=== PATIENT | male | born 1960 | race Caucasian/White ===

== ENCOUNTER 2017-11-05 19:42 | Emergency (ER) | payer OTHER ==
[~2017-11-05] VITALS: Ht 175.3 cm; Wt 70.0 kg
[2017-11-05] MEDS ORDERED: SODIUM CHLORIDE 0.9% 1,000 ML IV ONE (20:41)
[2017-11-05] MEDS ORDERED: FAMOTIDINE 20MG/2ML VIAL IV STA (20:41)
[2017-11-05] MEDS ORDERED: MAGNESIUM/ALUMINUM HYDROXIDE/SIMETHICONE 30ML UDC PO STA (20:41)
[2017-11-05] MEDS ORDERED: ONDANSETRON HCL 4MG/2ML VIAL IV STA (20:41)
[2017-11-05 20:59] LABS: BASOPHILS % 0.3 % (0.0-2.0); EOSINOPHILS % 1.7 % (0.0-5.0); HEMATOCRIT. 41.2 % (42.0-52.0); HEMOGLOBIN. 14.2 g/dL (14.0-18.0); LYMPHOCYTES % 16.8 % (20.0-50.0); MEAN CORPUSCULAR HEMOGLOBIN 31.5 pg (28.0-32.0); MEAN CORPUSCULAR VOLUME 91.4 fL (80.0-94.0); MEAN PLATELET VOLUME 8.2 fl (7.4-10.4); MONOCYTES % 5.9 % (2.0-8.0); NEUTROPHILS % 75.3 % (40.0-76.0); PLATELET 239 x1000/uL (130-400); RED CELL DISTRIBUTION WIDTH 13.4 % (11.6-14.6)
[2017-11-05 21:01] LABS: CHLORIDE 108 mEq/L (98-107)
[2017-11-05 21:02] LABS: PROTHROMBIN TIME 10.4 sec (9.1-11.1)
[2017-11-05 22:15] VITALS: BP 133/78
== END 2017-11-05 22:24 | disposition home or self-care (01) ==
LOC: ER 19:42
DX: R10.13 Epigastric pain (principal); R07.89 Other chest pain; R73.9 Hyperglycemia, unspecified; R11.2 Nausea with vomiting, unspecified; R19.7 Diarrhea, unspecified; F41.9 Anxiety disorder, unspecified; F12.90 Cannabis use, unspecified, uncomplicated
CPT/HCPCS: 36415; 71045; 80053; 83690; 83880; 84484; 85025; 85610; 93005; 96374; 96375; 99285; J2405; J3490; J7030